=== PATIENT | female | born 1940 | race Caucasian/White ===

== ENCOUNTER 2019-03-13 05:37 | Inpatient (IN) | payer MEDICARE, BC ==
[~2019-03-13] VITALS: Ht 157.5 cm; Wt 57.2 kg
[~2019-03-13 05:37] MED LIST: METO-357 PO; QUET50TA PO; RIVA10TA PO; SENN-168 PO
--- NOTE | 2019-03-13 06:15 | NUR ---
Admitted a 78 y/o female from [facility] and evaluated at [facility]. On 5150 hold as GD. Patient admitting Dx. Psychosis. Medical dx. hypertension. Per hold, patient is throwing dishes and bottles at peoples and onto streets. per daughter's neighbors and patrol, client is severely mentally impaired and reportedly drinking green water from pool. Upon face to face evaluation, patient appeared alert and oriented x 2, anxious, disorganize, easily agitated, irritable, demanding, needy, entitled, argumentative, paranoid, bizarre behavior, ambulatory with walker, dishevelled and hard to redirect. Explanation provided to the patient, limit settings done and redirected the patient. Explained the paper works and patient's refused to sign the consents. Informed of visiting hours and unit policies. Belongings and contraband checked. Q15 min checks initiated. Care plan started. Vital signs checked and recorded. Patient's rights discussed, guide to prescription meds handbook provided. Patient advised of the hold. Notified Dr. Lucas of the admission. left message to SUPA LANDRY (responsible republican). Will monitor patient for mood, safety and behavior. Will endorse to the day shift.
[2019-03-13 06:25] VITALS: BP 135/75
[2019-03-13] MEDS ORDERED: MAG HYDROX/AL HYDROX/SIMETH 30 ML UDC PO PRN (06:30)
[2019-03-13] MEDS ORDERED: ACETAMINOPHEN 325 MG TABLET PO PRN (06:30)
[2019-03-13] MEDS ORDERED: LORAZEPAM 0.5 MG TABLET PO PRN (06:30)
[2019-03-13] MEDS ORDERED: BLOOD SUGAR DIAGNOSTIC 1 EACH STRIP IN ONE (06:30)
[2019-03-13] MEDS ORDERED: ZOLPIDEM TARTRATE 5 MG TABLET PO PRN (06:30)
[2019-03-13] MEDS ORDERED: MAGNESIUM HYDROXIDE 30 ML UDC PO PRN (06:30)
--- NOTE | 2019-03-13 06:56 | NUR ---
RN NOTES: PT. REFUSED FULL BODY SKIN ASSESSMENT AND PICTURES, NOTED WITH MULTIPLE BODY DISCOLORATIONS AND BRUISES, ENCOURAGED X3 EXPLINED RISKS AND BENEFITS STILL REFUSED ,PER PT. I AM GOING HOME RIGHT NOW, I AM OK, ENDORSE TO DAY NURSE TO FOLLOW UP . PT.REFUSED ID PICTURES FOR THE CHART AT THIS TIME PT. REFUSED MRSA NARES SWAB AT THIS TIME, PT. BEHAVIOR VERY UNCOOPERATIVE, PARANOID AT THIS TIME , WILL ENDORSE TO DAY NURSE FOR CONTINUITY CARE AND FOLLOW UP
--- NOTE | 2019-03-13 07:00 | NUR ---
RN NOTES: PT. REFUSED INTIALLY BLOOD SUGAR CHECK , ENCOURAGED , PER PT. I DON'T WANT TO CHECK.
[2019-03-13] MEDS ORDERED: LORA-259 PO (08:23)
[2019-03-13] MEDS ORDERED: METO-357 PO (08:23)
[2019-03-13] MEDS ORDERED: SENNOSIDES 8.6 MG TABLET PO PRN (10:30)
--- NOTE | 2019-03-13 10:35 | NUR ---
HARPAL called the pts daughter, Karime ([phone]), and discussed the pts case as she is a returning patient. HARPAL informed her that the pt has a different psychiatrist with this admission and that once she is medicated again that the pt will hopefully show improvement. HARPAL stated that she will pass on her number to the psychiatrist the following day and we can devise a discharge plan together. Addendum: 03/14/19 at 1419 by SARITHA ROWAN Ifrah
[2019-03-13] MEDS: METOPROLOL SUCCINATE 50 MG TAB.SR.24H PO SCH (11:26)
--- NOTE | 2019-03-13 11:48 | NUR ---
umesh BARRIGA RN aware. Addendum: 03/13/19 at 1149 by BANDAR NDIAYE RT Amended: Links added.
--- NOTE | 2019-03-13 15:46 | NUR ---
Group Note: SW encouraged the pt to participate in group therapy on 03/13/19 at 2pm on support systems and their impact. The pt stated that she hates her family and no one helps her. She stated that she wanted to go home and utilized inappropriate language.
[2019-03-13 16:00] VITALS: BP 151/84
[2019-03-13] MEDS: RIVAROXABAN 10 MG TABLET PO SCH (17:16)
[2019-03-13] MEDS: DIVALPROEX SODIUM 125 MG TABLET.DR PO SCH (21:00)
[2019-03-13] MEDS: QUETIAPINE FUMARATE 25 MG TABLET PO SCH (21:39)
--- NOTE | 2019-03-13 21:39 | NUR ---
GPS-RN PATIENT REFUSED HER SCHEDULED MEDICATIONS FOR TONIGHT. DESPITE OF EDUCATION PROVIDED. PATIENT STATED "NO, I DON'T WANT IT, GET OUT OF HERE". PATIENT STRONGLY REFUSED.
--- NOTE | 2019-03-13 23:08 | NUR ---
GPS-RN REPORT GIVEN TO ISRRAEL MERINO, FOR CONTINUITY OF CARE.
--- NOTE | 2019-03-13 23:10 | NUR ---
RN NOTES Report received from WILBER Porter. Patient received sitting up on bed, alert, oriented x 2-3. Breathing even and unlabored. Not in any distress. Patient is non- compliant with cares and meds. Will continue to monitor
[2019-03-14 08:00] VITALS: BP 134/62
[2019-03-14] MEDS ORDERED: ESCITALOPRAM OXALATE (10 MG) 10 MG TABLET PO SCH (09:00)
[2019-03-14] MEDS: DIVALPROEX SODIUM 125 MG TABLET.DR PO SCH ×3 (09:00→21:00)
[2019-03-14] MEDS: METOPROLOL SUCCINATE 50 MG TAB.SR.24H PO SCH (09:09)
--- NOTE | 2019-03-14 09:30 | NUR ---
REFUSED AM DEPAKOTE AND LABS.YELLING OUT AT STAFF WITH PROFANITY.
--- NOTE | 2019-03-14 11:30 | NUR ---
SPOKE WITH DR. FERRELL REGARDING DEPAKOTE REFUSAL.
--- NOTE | 2019-03-14 13:00 | NUR ---
DR. MORRIS CALLED REGARDING 3+ EDEMA IN LT. LEG AND 2+ EDEMA IN RT. LEG.ADDITIONALLY DR. MORRIS AWARE OF DVT HX.NO ORDERS GIVEN.DR. TAMAYO IN TO SEE PT. ON CONSULT.
--- NOTE | 2019-03-14 14:00 | NUR ---
DR. FERRELL SPOKE WITH PT. AT LENGTH REGARDING NEED TO TAKE MEDS-PT. STATES TO HIM SHE IS AGREEABLE TO TAKE HER MEDS.
--- NOTE | 2019-03-14 14:10 | NUR ---
HARPAL and the pts MD, Dr. Lucas, met with the pt in her room to discuss her medication noncompliance. It was explained to the pt that she is on a hold and cannot be discharged home until she is stable which requires her to take her medications. Pt stated that she does not have bipolar and does not need the medications but towards the end of the meeting the pt stated that she will take the medications.
--- NOTE | 2019-03-14 14:15 | NUR ---
Pts daughter, Ifrah ([phone]), called the SW once she spoke to the MD and stated that she wanted to send over information regarding the pt and the instances surrounding a need for hospitalization so that the SW can present that information during the PC hearing.
--- NOTE | 2019-03-14 14:18 | NUR ---
HRAPAL called the pts daughter, Ifrah ([phone]), and informed her that the SW left her number with the psychiatrist to receive a phone call regarding the pt. HARPAL also informed her that the pt has not been taking her medications at this time.
--- NOTE | 2019-03-14 14:18 | NUR ---
Initial Discharge Plan: Pt currently lives alone in her house located at [address] [place] [address]; ([phone]). Per pt, she would like to return to her home as soon as possible. SW will work with the pt and the MD regarding appropriate discharge planning. SW will form a safe and proper discharge.
[2019-03-14] MEDS ORDERED: DIVALPROEX SODIUM 125 MG TABLET.DR PO ONE (15:00)
--- NOTE | 2019-03-14 15:00 | NUR ---
AM DEPAKOTE GIVEN ALONG WITH NEW SEROQUEL.
[2019-03-14] MEDS: QUETIAPINE FUMARATE 25 MG TABLET PO SCH ×2 (15:01→21:02)
[2019-03-14 16:00] VITALS: BP 151/71
--- NOTE | 2019-03-14 16:08 | NUR ---
Group Note: SW went to patient's room to invite patient to attend today's support group at 2:45pm in the activities room, regarding positive coping mechanisms. Patient refused. SW encouraged patient to attend later but respected patient's self-determination.
[2019-03-14] MEDS: RIVAROXABAN 10 MG TABLET PO SCH (17:15)
[2019-03-14 20:33] VITALS: BP 123/63
--- NOTE | 2019-03-14 21:02 | NUR ---
GPS-RN PATIENT REFUSED HER SCHEDULED MEDICATIONS FOR TONIGHT. PT. YELLS OUT AND AGITATED STATED "NO, I DON'T WANT TO TAKE IT". DESPITE OF EDUCATION PROVIDED, PATIENT STILL REFUSED. WILL CONTINUE TO MONITOR.
[2019-03-15 08:00] VITALS: BP 119/59
--- NOTE | 2019-03-15 08:55 | NUR ---
Per [facility] regulations, the has been in contact with the pts daughter, Ifrah ([phone]), and has been releasing information on the pt because the pt is on a hold for grave disability.
[2019-03-15] MEDS: DIVALPROEX SODIUM 125 MG TABLET.DR PO SCH ×2 (09:00→21:00)
[2019-03-15] MEDS: QUETIAPINE FUMARATE 25 MG TABLET PO SCH ×2 (09:00→21:46)
--- NOTE | 2019-03-15 09:07 | NUR ---
Pts daughter, Ifrah ([phone]), called the SW and confirmed that the SW received the email that was sent. Pts daughter also asked for an update regarding the pts behaviors and the SW informed her that the pt has been visible on the unit and appeared to be agitated.
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
[2019-03-15] MEDS: METOPROLOL SUCCINATE 50 MG TAB.SR.24H PO SCH (09:46)
--- NOTE | 2019-03-15 12:41 | NUR ---
Pt. was screaming, yelling, verbally abusive and highly agitated to the psychiatrist and psychiatrist ordered Zyprexa 10 mg IM>
--- NOTE | 2019-03-15 12:50 | NUR ---
rn note zyprexa 10 mg IM shot voluntarily given right deltoid, pt agreed to take the shot stating, "give me the shot" when informing her about the medication.
[2019-03-15] MEDS ORDERED: OLANZAPINE 10 MG VIAL IM ONE (13:00)
--- NOTE | 2019-03-15 13:29 | NUR ---
rn note pt went to bed and sleepy, still talks to herself, at this time.
[2019-03-15 16:00] VITALS: BP 129/76
--- NOTE | 2019-03-15 17:11 | NUR ---
Pt. is fully aware and said she is not drowsy or sleepy. Pt. is using wheelchair and advised to call to staffs if needs assistance. Notified Dr. Lucas and ordered to d/c 1:1
[2019-03-15] MEDS: RIVAROXABAN 10 MG TABLET PO SCH (17:49)
[2019-03-15 20:25] VITALS: BP 111/45
--- NOTE | 2019-03-15 21:48 | NUR ---
GPS RN notes Pt refused PM medications: Depakote 125 mg/1 tab/PO and Seroquel 25 mg/1 tab/PO. Explained the benefits of taking meds. Pt states "Put in your ass and get out of my room." Will continue to monitor.
--- NOTE | 2019-03-16 00:30 | NUR ---
GPS RN notes Pt had a small nose bleed. Pt refused to have assessment. Pt states " Close the door. I don't want you here." Will continue to monitor Q 15 mins check.
--- NOTE | 2019-03-16 00:45 | NUR ---
GPS RN notes Pt refused to have q 15 min check. Pt states "Get the fuck out of here. You are a bitch." Informed Pt that it is a hospital protocol to have Q 15 mins check for Pt safety. Informed and notify Charge Nurse WILBER Brink. Will continue to monitor.
--- NOTE | 2019-03-16 00:50 | NUR ---
GPS RN NOTE: PATIENT CURSED AT STAFF, THREW THE TISSUES ON THE STAFF AND VERBALLY ABUSIVE. SPOKED TO THE PATIENT, REDIRECT THE PATIENT, LIMIT SETTINGS DONE, REALITY ORIENTATION AND EXPLANATIONS OF THE POLICIES AND PROCEDURE PROVIDED. PATIENT CALM DOWN AND STAYS IN BED. WILL CONTINUE TO MONITOR Q15 MINS FOR SAFETY
--- NOTE | 2019-03-16 05:00 | NUR ---
GPS RN notes Found Pt picking her nose. Informed Pt not to picking her nose because she had a small nose bleed earlier. Pt states " Shut up and get out of my room." Charge nurse WILBER Brink informed and notify. Will continue to monitor Q 15 mins check.
[2019-03-16 08:00] VITALS: BP 126/68
[2019-03-16] MEDS: METOPROLOL SUCCINATE 50 MG TAB.SR.24H PO SCH (08:30)
[2019-03-16] MEDS: DIVALPROEX SODIUM 125 MG TABLET.DR PO SCH ×2 (08:34→21:00)
[2019-03-16] MEDS: QUETIAPINE FUMARATE 25 MG TABLET PO SCH (08:34)
--- NOTE | 2019-03-16 08:34 | NUR ---
gps staff cytotechnologist: notes pt refused depakote and seroquel this morning, stated, "i am not on it, i don't like medicine."
[2019-03-16] MEDS: OLANZAPINE 5 MG/TAB.RAPDIS PO SCH ×2 (09:43→21:00)
--- NOTE | 2019-03-16 15:30 | NUR ---
GROUP NOTE: SW encourage pt to participate in group therapy on this present day discussing the topic of "support systems." Pt unable to participate due to yelling, screaming, and refusing medications.
[2019-03-16 16:00] VITALS: BP 160/83
--- NOTE | 2019-03-16 16:06 | NUR ---
PC Hearing: SW called pt's daughter, Maral ([phone]), and left a voicemail that informed her that the pt is going to have a hearing on Tuesday.
[2019-03-16] MEDS: RIVAROXABAN 10 MG TABLET PO SCH (17:11)
[2019-03-16 20:00] VITALS: BP 117/73
--- NOTE | 2019-03-16 22:00 | NUR ---
RN NOTES PATIENT REFUSED DEPAKOTE AND ZYPREXA. I INFORMED PATIENT ABOUT THE RISKS AND BENEFITS OF TAKING/NOT TAKING DEPAKOTE AND ZYPREXA. PATIENT INSISTS ON REFUSING THE MEDICATIONS. WILL CONTINUE TO MONITOR.
--- NOTE | 2019-03-17 03:45 | NUR ---
GPS RN NOTES PATIENT CURSING AT STAFF, VERBALLY ABUSIVE. PATIENT REFUSED MONITOR Q15 CHECKS. PATIENT WALKING AROUND WITH WALKER. CHARGE NURSE, GLEN, INFORMED AND NOTIFIED. WILL CONTINUE TO MONITOR.
--- NOTE | 2019-03-17 04:05 | NUR ---
RN NOTES PATIENT WALKING AROUND UNIT YELLING OUT PROFANITY TO ME AND WILBER DAVIS. SHE FOLLOWS IT UP BY STATING, "YOU BOTH CAN GO TO HELL."
--- NOTE | 2019-03-17 04:29 | NUR ---
GPS RN NOTES PATIENT HAD A SMALL NOSE BLEED. ASKED PATIENT IF I CAN ASSESS HER NOSE. PATIENT REFUSED, STATING, "NO THANK YOU, I CAN DO IT MY SELF. GOODBYE. GO AWAY." CHARGE NURSE, GLEN, KB. WILL CONTINUE TO MONITOR PATIENT Q15 MINS CHECK.
[2019-03-17 07:09] VITALS: BP 117/73
[2019-03-17 08:00] VITALS: BP 134/73
--- NOTE | 2019-03-17 08:00 | NUR ---
COOPERATIVE,ENGAGING IN CONVERSATION WITH OTHER PT'S.
[2019-03-17] MEDS: OLANZAPINE 5 MG/TAB.RAPDIS PO SCH ×2 (09:05→21:25)
[2019-03-17] MEDS: DIVALPROEX SODIUM 125 MG TABLET.DR PO SCH ×2 (09:05→21:25)
[2019-03-17] MEDS: METOPROLOL SUCCINATE 50 MG TAB.SR.24H PO SCH (09:05)
--- NOTE | 2019-03-17 14:30 | NUR ---
VERBALIZED BEING UPSET ABOUT NOT HAVING A PRIVATE RM.
[2019-03-17 16:00] VITALS: BP 130/69
[2019-03-17] MEDS: RIVAROXABAN 10 MG TABLET PO SCH (16:52)
--- NOTE | 2019-03-17 20:00 | NUR ---
GPS RN NOTES PT REFUSED TO HAVE VS TAKEN. EXPLAINED TO PT IMPORTANCE OF VS IN HER POC BUT PT STILL REFUSED. WILL CONTINUE TO MONITOR.
[2019-03-18 08:00] VITALS: BP 116/53
[2019-03-18] MEDS: METOPROLOL SUCCINATE 50 MG TAB.SR.24H PO SCH (09:00)
[2019-03-18] MEDS: OLANZAPINE 5 MG/TAB.RAPDIS PO SCH ×2 (09:00→21:00)
[2019-03-18] MEDS: DIVALPROEX SODIUM 125 MG TABLET.DR PO SCH ×2 (09:00→21:00)
--- NOTE | 2019-03-18 09:00 | NUR ---
RN NOTES PATIENT REFUSED ALL HER AM MEDS. YELLS AND CUSSES AT EVERYONE. PROVOKES EVERYONE.
[2019-03-18 16:00] VITALS: BP 142/74
[2019-03-18] MEDS: RIVAROXABAN 10 MG TABLET PO SCH (17:09)
--- NOTE | 2019-03-18 21:00 | NUR ---
Patient is confused but alert and oriented x2, person and place. Steady gait. However, patient is seen in the unit on a wheelchair. Refused all medications. Very loud at time, sarcastic and manipulative. Denies SI/AVH. Will continue to monitor.
[2019-03-18 21:35] VITALS: BP 118/50
--- NOTE | 2019-03-19 05:05 | NUR ---
Patient refused body assessment of pictures.
[2019-03-19 08:00] VITALS: BP 130/70
[2019-03-19] MEDS: METOPROLOL SUCCINATE 50 MG TAB.SR.24H PO SCH (08:46)
[2019-03-19] MEDS: DIVALPROEX SODIUM 125 MG TABLET.DR PO SCH ×2 (08:47→21:00)
[2019-03-19] MEDS: OLANZAPINE 5 MG/TAB.RAPDIS PO SCH ×2 (08:47→21:00)
--- NOTE | 2019-03-19 09:00 | NUR ---
GPS/RN AM SHIFT INITIAL NOTES RECEIVED PT IN THE UNIT HALLWAY AWAKE, PT IS ALERT, ABLE TO VERBALIZED HER NEEDS. DENIES SI AND HI, NO ACUTE DISTRESS NOTED. VERBALIZED THAT SHE WILL ONLY TAKE HER METOPROLOL MEDICATION AFTER BREAKFAST AND REFUSED THE THE REST OF SCHEDULED AM MEDS. PT IS STABLE. MONITORING.
--- NOTE | 2019-03-19 12:44 | NUR ---
HARPAL met with the pts daughter, Maral ([phone]) and her , Steven, because they wanted to attend the pts PC Hearing. HARPAL informed the [place] Door Assembler, Aki Corcoran, who stated that he will allow the family to present their evidence before the hearing because the pt did not release permission for the family to be involved. This way the family can have a part but will not be able to hear any of the information presented by the hospital or the pts advocate.
--- NOTE | 2019-03-19 12:47 | NUR ---
HARPAL called the pt's daughter, Maral ([phone]), and informed her that the pts hold was upheld and that the pt is not currently filing for a writ. Pt will now be discharged when the pts MD, Dr. Lucas, decides to release her.
--- NOTE | 2019-03-19 15:30 | NUR ---
GROUP NOTE: SW encourage pt to participate in group therapy on this present day discussing the topic of "reality-testing." Pt unable to participate due to being verbally abusive and refusing medications.
[2019-03-19 16:00] VITALS: BP 124/69
--- NOTE | 2019-03-19 16:25 | NUR ---
GPS/TELEPHONE SALES AGENT DRAW - REFUSED LABORATORY TECHNICIANS ATTEMPTED 3 TIMES FOR PT TO AGREE FOR A LAB DRAW, STILL REFUSED. Addendum: 03/19/19 at 1804 by SLOANE TANG RN ADDENDUM: DR. MORRIS MADE AWARE OF PT'S REFUSAL FOR LAB DRAW.
[2019-03-19] MEDS: RIVAROXABAN 10 MG TABLET PO SCH (16:27)
--- NOTE | 2019-03-19 19:16 | NUR ---
GPS/RN AM SHIFT END NOTES ALL NEEDS MET. NO ACUTE CHANGE OF CONDITION NOTED DURING THE SHIFT, PT ENDORSED TO PM NURSE IN STABLE CONDITION TO CONTINUE CARE.
[2019-03-19 20:00] VITALS: BP 189/87
[2019-03-19 20:31] VITALS: BP 159/84
[2019-03-19 21:00] VITALS: BP 158/85
[2019-03-20 08:00] VITALS: BP 124/68
[2019-03-20] MEDS ORDERED: OLANZAPINE 10 MG VIAL IM ONE (09:30)
[2019-03-20] MEDS: METOPROLOL SUCCINATE 50 MG TAB.SR.24H PO SCH (11:00)
[2019-03-20] MEDS: DIVALPROEX SODIUM 125 MG TABLET.DR PO SCH ×2 (11:00→21:00)
[2019-03-20] MEDS: OLANZAPINE 5 MG/TAB.RAPDIS PO SCH ×2 (11:01→21:00)
--- NOTE | 2019-03-20 15:19 | NUR ---
Group Note: SW encouraged the pt to participate in group therapy on 03/20/19 at 2pm discussing the topic of discharge planning. Pt was unable to participate due to being verbally abusive and refusing medications. Pt screamed at the SW, "Get out of here! I already fucking told you that I am going to go home!" Pt did not appear to be appropriate for group therapy.
[2019-03-20 16:00] VITALS: BP 134/65
[2019-03-20] MEDS: RIVAROXABAN 10 MG TABLET PO SCH (18:02)
[2019-03-20 20:10] VITALS: BP 134/72
[2019-03-20] MEDS: ATORVASTATIN 10 MG TABLET PO SCH (22:00)
--- NOTE | 2019-03-20 22:46 | NUR ---
GPS RN NOTE: PATIENT REFUSED PM MEDS, EXPLAINED THE RISK AND BENEFITS, PATIENT STILL REFUSED. WILL CONTINUE TO MONITOR Q15 MINS FOR SAFETY
--- NOTE | 2019-03-21 07:10 | NUR ---
RN INITIAL NOTE PATIENT IN HER ROOM. VERY TALKATIVE AND MAKING JOKES. PER REPORT, PATIENT TENDS TO CHANGE MOODS ALL THE TIME. WILL CONTINUE TO MONITOR
[2019-03-21 08:00] VITALS: BP 116/59
[2019-03-21] MEDS: METOPROLOL SUCCINATE 50 MG TAB.SR.24H PO SCH (08:55)
[2019-03-21] MEDS: OLANZAPINE 5 MG/TAB.RAPDIS PO SCH ×2 (08:55→21:00)
[2019-03-21] MEDS: DIVALPROEX SODIUM 125 MG TABLET.DR PO SCH ×2 (08:55→21:00)
--- NOTE | 2019-03-21 15:51 | NUR ---
RN NOTE PATIENT HAD 1 EPISODE OF EPISTAXIS. VSS. CRYSTAL DURHAM AWARE. WILL HOLD DOSE OF XARELTO AT 1700 AND TO CONTINUE MONITORING FOR TONIGHT
[2019-03-21] MEDS: RIVAROXABAN 10 MG TABLET PO SCH (16:07)
--- NOTE | 2019-03-21 16:09 | NUR ---
RN NOTE PATIENT REFUSES TO GET HER VITALS DONE FOR THIS AFTERNOON. LAST BP WAS 121/59, POST NOSE BLEED
--- NOTE | 2019-03-21 16:21 | NUR ---
SW called the pt's daughter, Maral ([phone]), as a response to her voicemail and discussed the option of SNF placement but need to hear the MDs opinion.
[2019-03-21 20:31] VITALS: BP 162/75
[2019-03-21] MEDS: ATORVASTATIN 10 MG TABLET PO SCH (22:00)
--- NOTE | 2019-03-21 23:21 | NUR ---
GPS RN NOTE: PATIENT REFUSED DEPAKOTE, ZYPREXA AND LIPITOR. EXPLAINED THE RISK AND BENEFIT X 3 ATTEMPTS. PATIENT GETS UPSET, LOUD, HYPERVERBAL, CURSING AT STAFF, AGITATED, VERBALLY ABUSIVE AND PATIENT STILL REFUSED. PATIENT TALKING TO SELF AND CANNOT CONTROL HER BEHAVIOR. PATIENT WANTED TO BE DISCHARGED. SET LIMITS TO THE PATIENT. CHARGE NURSE SPOKE TO THE PATIENT AND PROVIDED EXPLANATION AND REDIRECTIONS. TIME GIVEN TO THE PATIENT. PATIENT KEPT QUIET INSIDE HER ROOM AND DOES NOT WANT TO BE BOTHERED. WILL CONTINUE TO MONITOR Q15 MINS FOR SAFETY
[2019-03-22 07:24] LABS: BASOPHILS % (AUTO) 0.3 % (0.0-2.0); EOSINOPHILS % (AUTO) 1.5 % (0.0-6.0); HEMATOCRIT 36 % (33-45); HEMOGLOBIN 12.2 g/dL (11.5-14.8); LYMPHOCYTES # (AUTO) 1.4 /CMM (0.8-4.8); LYMPHOCYTES % (AUTO) 18.7 % (20.0-44.0); MEAN CORPUSCULAR HGB CONC 34 g/dl (31.0-36.0); MEAN CORPUSCULAR VOLUME 87 fL (82-100); MONOCYTES # (AUTO) 0.5 /CMM (0.1-1.30); NEUTROPHILS # (AUTO) 5.4 /CMM (1.8-8.9); NEUTROPHILS % (AUTO) 72.5 % (43.0-81.0); PLATELET COUNT (AUTO) 287 /CMM (150-450); RED BLOOD CELL COUNT(AUTO) 4.16 MIL/uL (4.0-5.2); WHITE BLOOD COUNT (AUTO) 7.5 K/uL (4.3-11.0)
[2019-03-22 08:00] VITALS: BP 121/51
[2019-03-22] MEDS: OLANZAPINE 5 MG/TAB.RAPDIS PO SCH ×2 (08:52→21:00)
[2019-03-22] MEDS: DIVALPROEX SODIUM 125 MG TABLET.DR PO SCH ×2 (08:52→21:00)
[2019-03-22] MEDS: METOPROLOL SUCCINATE 50 MG TAB.SR.24H PO SCH (08:52)
--- NOTE | 2019-03-22 15:35 | NUR ---
Group Note: SW encouraged pt to attend group therapy on 03/22/19 at 2:30pm discussing anger management for when they are in the hospital and for once they are discharged but pt unable to attend.
--- NOTE | 2019-03-22 16:00 | NUR ---
refused vital signs. explained risk and bebnefits but still refused.
[2019-03-22] MEDS: RIVAROXABAN 10 MG TABLET PO SCH (17:50)
--- NOTE | 2019-03-22 22:00 | NUR ---
GPS RN NOTES TOOK ONLY HER CHOLESTEROL PILL.REFUSED DEPAKOTE AND ZYPREXA.EXPLAINED RISK AND BENEFITS FOR TAKING AND NOT TAKING ORDERED MEDICINES,STILL REFUSED.
[2019-03-22] MEDS: ATORVASTATIN 10 MG TABLET PO SCH (22:05)
--- NOTE | 2019-03-22 23:06 | NUR ---
GPS RN NOTES REFUSED BED ALARMS
--- NOTE | 2019-03-23 05:15 | NUR ---
GPS RN NOTES REFUSED TO HAVE BLOOD DRAW THIS TIME.CLAIMED SHE GOT ONE YESTERDAY.
--- NOTE | 2019-03-23 07:18 | NUR ---
OPENING PATIENT IN HER ROOM IN BED VERY TALKATIVE . PATIENT CURRENTLY CALM WILL CONTINUE TO MONITOR
[2019-03-23 08:00] VITALS: BP 118/64
[2019-03-23] MEDS: OLANZAPINE 5 MG/TAB.RAPDIS PO SCH ×2 (09:24→21:00)
[2019-03-23] MEDS: METOPROLOL SUCCINATE 50 MG TAB.SR.24H PO SCH (09:24)
[2019-03-23] MEDS: DIVALPROEX SODIUM 125 MG TABLET.DR PO SCH ×2 (09:24→21:00)
--- NOTE | 2019-03-23 13:24 | NUR ---
SW called the pt's daughter, Maral ([phone]), and informed her that the pts MD and SW speak every day regarding the situation of the pt. She was informed that the pt is not stable at this time to even consider placement due to the fact that she takes her medications sporadically. HARPAL stated that once the pt has shown improvement, she will be in contact to discuss the appropriate options.
[2019-03-23 16:00] VITALS: BP 114/65
[2019-03-23] MEDS: RIVAROXABAN 10 MG TABLET PO SCH (17:08)
--- NOTE | 2019-03-23 17:53 | NUR ---
CLOSING PT COOPERATIVE ALL DAY MOSTLY IN ROOM BED IN LOW POSITION KEPT SAFE ALL SHIFT PT COMPLIANT WITH MEDICATION PLAN. WILL GIVEN REPORT TO PM SHIFT FOR CONTINUITY OF CARE
[2019-03-23 18:04] VITALS: BP 118/64
--- NOTE | 2019-03-23 19:56 | NUR ---
PT IS IN HER ROOM WHEN RECEIVED, LYING IN BED, AFTER WE NURSES CAME OUT OF PTS ROOM PT CAME OUT TOO AND START YELLING AND CUSSING.
[2019-03-23 21:16] VITALS: BP 147/69
[2019-03-23] MEDS: ATORVASTATIN 10 MG TABLET PO SCH (21:32)
--- NOTE | 2019-03-23 22:00 | NUR ---
PT REFUSED ALL HS MEDS, OFFERED IT TO PT 3X, BUT ONLY MAKING PT AGITATED, CHARGE NURSE INFORMED.
[2019-03-24 08:00] VITALS: BP 116/66
[2019-03-24] MEDS: OLANZAPINE 5 MG/TAB.RAPDIS PO SCH ×2 (09:00→21:00)
[2019-03-24] MEDS: METOPROLOL SUCCINATE 50 MG TAB.SR.24H PO SCH (09:00)
[2019-03-24] MEDS: DIVALPROEX SODIUM 125 MG TABLET.DR PO SCH ×2 (09:00→21:00)
--- NOTE | 2019-03-24 09:20 | NUR ---
GPS RN NOTES PATIENT REFUSED TO TAKE AM MEDICATIONS. RISKS AND BENEFITS EXPLAINED BUT TO NO AVAIL. PATIENT STRONGLY REFUSED, WITH INCREASING AGITATION MEDICATIONS ARE BEING OFFERED TO HER. CHARGE NURSE AWARE. WILL CONTINUE TO MONITOR
[2019-03-24 16:00] VITALS: BP 125/70
[2019-03-24] MEDS: RIVAROXABAN 10 MG TABLET PO SCH (16:08)
[2019-03-24 20:49] VITALS: BP 160/77
[2019-03-24] MEDS: ATORVASTATIN 10 MG TABLET PO SCH (21:30)
--- NOTE | 2019-03-25 03:47 | NUR ---
RN NOTES: PT. REFUSED ALL NIGHT MEDS ,ENCOURAGER ,EXPLINED RISKS AND BENEFITS , STILL REFUSE .PER PT. I AM NOT TAKING ANY MEDS.
--- NOTE | 2019-03-25 07:50 | NUR ---
GPS RN NOTE PATIENT IN HER ROOM ,VERY TALKATIVE . WALKING AROUND HER ROOM , RESPIRATION EVEN UNLABORED , BED IN LOWEST AND LOCKED POSITION , PLAN OF CARE DISCUSSED WITH PATIENT , WILL CONT TO MONITOR Q15 MIN FOR SAFETY AND BEHAVIOR
[2019-03-25] MEDS: METOPROLOL SUCCINATE 50 MG TAB.SR.24H PO SCH (09:12)
[2019-03-25] MEDS: DIVALPROEX SODIUM 125 MG TABLET.DR PO SCH ×2 (09:12→21:00)
[2019-03-25] MEDS: OLANZAPINE 5 MG/TAB.RAPDIS PO SCH ×2 (09:12→21:00)
--- NOTE | 2019-03-25 10:38 | NUR ---
GPS RN NOTE PATIENT IN ACTIVITY ROOM , NOT IN DISTRESS
--- NOTE | 2019-03-25 14:06 | NUR ---
GPS RN NOTE WALKING TO HALLWAY AND OCCASIONALLY GET AGITATED , ALL NEEDS ATTENDED, WILL MONITOR
[2019-03-25 16:00] VITALS: BP 128/78
[2019-03-25] MEDS: RIVAROXABAN 10 MG TABLET PO SCH (16:26)
--- NOTE | 2019-03-25 17:03 | NUR ---
GPS RN NOTE NOTED BOTH LEGS WITH REDNESS ANS SWOLLEN RT LEG MORE PINKISH IN COLOR , CALLED TO DR ARNOLD WITH ORDER US BOTH LEGS AND OK TO HAVE FOOT DOCTOR TO TRIM TOENAIL
--- NOTE | 2019-03-25 18:08 | NUR ---
GPS RN NOTE PATIENT IN ROOM HAVING DINNER ,ABLE TO EAT SELF, NOT IN ACUTE DISTRESS , WILL CONT TO MONITOR CLOSELY
--- NOTE | 2019-03-25 20:30 | NUR ---
RN NOTES: PT. RFUSED WEEKLY SKIN REASSESSMENT AND PHOTOGRAPH ,ENCOURAGED ,EXPLAINED RISKS AND BENEFITS STILL REFUSED, PT. STRONGLY REFUSED AND PT. BEHAVIOR VERY AGGRESSIVE, PARANOID, UNCOOPERATIVE,PARANOID.
[2019-03-25 20:32] VITALS: BP 125/52
[2019-03-25] MEDS: ATORVASTATIN 10 MG TABLET PO SCH (21:59)
--- NOTE | 2019-03-25 22:00 | NUR ---
RN NOTES: PT. REFUSED ALL NIGHT MEDS ,ENCOURAGER ,EXPLINED RISKS AND BENEFITS , STILL REFUSE .PER PT. I AM NOT TAKING ANY MEDS. THIS MEDICATIONS NOT FOR ME, PT. BEHAVIOR VERY UNCOOPERTIVE , AGGRESSIVE , PARANOID , HYPERVERBAL TO STAFF .
--- NOTE | 2019-03-26 04:30 | NUR ---
RN NOTES: PT. PACING IN HALLWAY , AND PT. BEHAVIOR VERY AGGRESIVE ,PARANOID, HYPERVERBAL, VERBALLY ABUSIVE TO STAFF, ARGUING WITH STAFF WITHOUT REASONS, OFFER ATIVAN PT. REFUSED TO TAKE ATIVAN, REDIRECT THE PATIENT BUT VERY HARD TO REDIRECT THE PATIENT ,NOT FOLLOWING ANY REDICTIONS , PT. USING ALOT OF F WORDS, WILL CONTINUITY OF THE CARE.
[2019-03-26 08:00] VITALS: BP 123/66
[2019-03-26] MEDS: OLANZAPINE 5 MG/TAB.RAPDIS PO SCH ×2 (09:32→21:00)
[2019-03-26] MEDS: METOPROLOL SUCCINATE 50 MG TAB.SR.24H PO SCH (09:32)
--- NOTE | 2019-03-26 10:14 | NUR ---
HARPAL and the pts MD, Dr. Lucas, spoke to the pt together regarding her discharge plan. Pt stated that she was upset with her stay at the hospital because she felt that everyone lies to her. She stated that she wanted to leave AMA but the MD explained that was not an option because she is on a hold. informed her that he would not consider discharging her until she takes her medications both in the morning and at night instead of just once a day. She stated that she has been taking it twice but the records do not show that. also stated that she cannot return to her home if it is not a safe placement for her and asked the SW to have a wellness check done on the house.
--- NOTE | 2019-03-26 14:57 | NUR ---
Group Note: SW encouraged pt to attend group therapy on 03/26/19 at 1:30pm discussing support systems for when they are in the hospital and for once they are discharged but the pt declined to attend.
[2019-03-26 16:00] VITALS: BP 100/63
[2019-03-26] MEDS: RIVAROXABAN 10 MG TABLET PO SCH (17:26)
[2019-03-26 19:48] VITALS: BP 136/63
[2019-03-26] MEDS: DIVALPROEX SODIUM 250 MG TABLET.DR PO SCH (21:00)
[2019-03-26] MEDS: ATORVASTATIN 10 MG TABLET PO SCH (21:13)
--- NOTE | 2019-03-26 22:10 | NUR ---
RN NOTES: PT. REFUSED ALL NIGHT MEDS ,ENCOURAGER ,EXPLINED RISKS AND BENEFITS , STILL REFUSE .PER PT. AT NIGHT TIMES I DON'T TAKING ANY MEDICATIONS, PT. BEHAVIOR VERY UNCOOPERTIVE , AGGRESSIVE , PARANOID , HYPERVERBAL TO STAFF .
[2019-03-27 08:00] VITALS: BP 112/52
[2019-03-27] MEDS: METOPROLOL SUCCINATE 50 MG TAB.SR.24H PO SCH (08:34)
[2019-03-27] MEDS: DIVALPROEX SODIUM 250 MG TABLET.DR PO SCH ×2 (08:35→16:38)
[2019-03-27] MEDS: OLANZAPINE 5 MG/TAB.RAPDIS PO SCH ×2 (08:35→16:38)
--- NOTE | 2019-03-27 15:30 | NUR ---
NURSING NOTE: PT VERY LABILE, VERY EASILY AGITATED, STARTED YELLING, SCREAMING, BANGING HER WALKER ON THE FLOOR, TRIED TO PULL THE CURTAINS FROM THE WALL IN HER ROOM, THROWING HER TRASH OUT IN THE HALLWAY, THEN WENT BACK TO HER ROOM TO CALM DOWN. OFFERED PRN MEDS BUT PT REFUSED. WILL CONTINUE TO MONITOR FOR SAFETY AND BEHAVIOR.
[2019-03-27 15:53] VITALS: BP 127/71
[2019-03-27] MEDS: RIVAROXABAN 10 MG TABLET PO SCH (16:39)
[2019-03-27 20:28] VITALS: BP 110/58
[2019-03-27] MEDS: ATORVASTATIN 10 MG TABLET PO SCH (22:00)
--- NOTE | 2019-03-27 22:43 | NUR ---
gps rn note: Patient refused lipitor, explained the risk and benefits x 3 attempts but patient stated get out of here. Will continue to monitor q15 mins for safety
--- NOTE | 2019-03-28 06:51 | NUR ---
GPS RN NOTE: PATIENT AWAKE, VERBALLY AGGRESSIVE, SCREAMING, LOUD, IRRITABLE, EASILY AGITATED, REDIRECTED THE PATIENT, EXPLANATION PROVIDED, WILL CONTIN TO MONITOR
[2019-03-28 08:00] VITALS: BP 152/97
[2019-03-28] MEDS: DIVALPROEX SODIUM 250 MG TABLET.DR PO SCH ×2 (09:22→18:04)
[2019-03-28] MEDS: OLANZAPINE 5 MG/TAB.RAPDIS PO SCH ×2 (09:22→18:06)
[2019-03-28] MEDS: METOPROLOL SUCCINATE 50 MG TAB.SR.24H PO SCH (09:23)
--- NOTE | 2019-03-28 10:55 | NUR ---
HARPAL called Cathleen Ventura ([phone]), Mallika ROWAN, who attempted to make two house visits with the pt. HARPAL was unable to make contact and left a voicemail that stated that the SW would like to discuss the pts home environment and if it is deemed to be liveable.
--- NOTE | 2019-03-28 11:09 | NUR ---
SW received a call from Waldemar ([phone]) from the [facility] who stated that the pt is now being connected to the AOT program and the individual on her case will be Slava Nava ([phone]). He stated that he does not know the current situation of the pts house and how she would be able to take care of herself.
--- NOTE | 2019-03-28 11:13 | NUR ---
HARPAL called Slava Nava ([phone]), AOT linen supervisor, and stated that she wanted to discuss the pts case with him. She informed him that the pt is going to be discharged from the hospital the following day and he stated that he would like to come out and assess the pt. He stated that he is not aware of the condition of the pts home at this time because he does not have access. HARPAL asked if he knew about any other way that someone can access the house and he stated he was not sure.
--- NOTE | 2019-03-28 11:17 | NUR ---
HARPAL called the pts daughter, Maral ([phone]), and informed her that we need an assessment done on the pts current living situation and she stated that she will go out with the police department because she has access. HARPAL stated that the pt is going to be discharged the following day and the assessment will determine if home is safe for the pt. She stated that she was there recently and that she does not believe it is because the toilets are full of feces and are overflowing and the pool is dirty and there is no running water in the house because the pt has not paid her bills. HARPAL stated that AOT is being involved with the pt and they are considering conservatorship for the pt but the pts daughter kept expressing her concern with a discharge back to the pts home.
--- NOTE | 2019-03-28 13:46 | NUR ---
Intervention with MD: HARPAL and the pts , Dr. Lucas, met with the pt and stated that her home is not habitable and that the water situation needs to be figured out before she can be discharged home. The pt stated that she has a friend, Courtney ([phone]), who is assisting her with this issue. Dr. Lucas presented the pt with two options that consisted of her remaining in the hospital while the water situation is handled or being transferred to a facility short term before returning to her home. Pt stated that she will stay in the hospital for a little bit longer and then she will return to her home.
--- NOTE | 2019-03-28 14:09 | NUR ---
Phone call with family and MD: Pts MD, Dr. Lucas, called the pts daughter, Maral ([phone]), and stated that the pt has until the beginning of the week to be discharged back to her home if it is safe and it is not then a facility needs to be considered because the MD does not think that the pt should be conserved at this time.
--- NOTE | 2019-03-28 15:05 | NUR ---
SW called pts friend, Courtneyavelino Samuels ([phone]), and left a voicemail stating that the SW would like to speak about the pts home environment and if there is any assistance or if it would be possible for the pt to be transferred to a facility. SW asked for him to provide her with a call back whenever it is convenient.
--- NOTE | 2019-03-28 15:54 | NUR ---
Patient is bizarre at times. Aimlessly shouting and acting childish. Difficult to redirect. Patient threw water on the floor and when staff arrive to clean the spots, patient shouted "leave it for me it's my job to clean it."Selective with interaction. However, with those she interacts with she is alert and oriented times 3.
[2019-03-28 16:00] VITALS: BP 163/98
--- NOTE | 2019-03-28 16:23 | NUR ---
GROUP NOTE: SW encouraged pt to attend group therapy on this present day discussing "discharge planning." Pt refused to attend and was verbally abusive, pt was yelling and was hitting her walker against the floor and she was banging her hand on the wall.
[2019-03-28] MEDS: RIVAROXABAN 10 MG TABLET PO SCH (18:06)
[2019-03-28 20:09] VITALS: BP 109/44
[2019-03-28] MEDS: ATORVASTATIN 10 MG TABLET PO SCH (22:00)
[2019-03-29 08:00] VITALS: BP 128/63
[2019-03-29] MEDS: OLANZAPINE 5 MG/TAB.RAPDIS PO SCH ×2 (08:59→16:40)
[2019-03-29] MEDS: DIVALPROEX SODIUM 250 MG TABLET.DR PO SCH ×2 (09:01→16:37)
[2019-03-29] MEDS: METOPROLOL SUCCINATE 50 MG TAB.SR.24H PO SCH (09:02)
--- NOTE | 2019-03-29 13:38 | NUR ---
Courtney Samuels ([phone]), pts biological engineer and friend, called the SW and stated that the pt called him and stated that she would like him to be her conservator. He stated that he is currently working with a biological engineer at this time to understand and start the process. The SW informed him of the situation regarding the pts home and the problems associated with the pts discharge planning. He stated that he cannot help with the pts water being turned back on and that he would refer the SW to her family members at this time. He stated that he would like a call from the pts MD Dr. Lucas.
--- NOTE | 2019-03-29 13:40 | NUR ---
SW spoke to the pts daughter, Maral ([phone]), and she stated that the pts water can be turned on by Tuesday if she releases her ID to them and fills out a form that can be turned into the water department. She stated that she would pay the bill for the pt and that way her water can be turned back on. HARPAL stated that she may come to the unit and speak to the pt about that option of taking her license to see if this service can be done.
--- NOTE | 2019-03-29 13:41 | NUR ---
Intervention with the pt: SW informed the pt that she can be released on Tuesday if there is water at her house and informed her that the pts daughter can assist with that need. The pt stated that she did not want her daughter involved and that she would get her electrotherapist involved and get discharged even sooner.
--- NOTE | 2019-03-29 13:42 | NUR ---
Intervention with the pt and the MD: Dr. Lucas spoke to the pt about how her travel accommodation inspector/friend, Courtney, stated that she would like him to be her conservator. She stated that was true but stated that she did not want to be in the hospital for as long as this process is to take place. She stated that she wanted to be discharged back to her home and that she wanted it to be done without her familys involvement.
--- NOTE | 2019-03-29 13:44 | NUR ---
Dr. Lucas and the SW spoke to pts liquid natural gas plant operator and friend, Courtney ([phone]), and it was discussed that the pt cannot return to her home under the conditions that it is claimed to be in. Dr. Lucas stated that the conservatorship process can get started while she is in the hospital on a 30 day hold and that if the pts liquid natural gas plant operator/friend, Courtney, does not make a decision regarding if he can start the process by Tuesday then Dr. Lucas will begin the process.
--- NOTE | 2019-03-29 13:46 | NUR ---
Family Intervention: SW met with the pts daughter, Maral ([phone]) and pts son in law, Steven, before they spoke to the pt about helping her with her finances and utilities. SW discussed that if the pt does not agree to use their assistance with her utilities then the MD spoke to the pts magnetic testing technician friend and that conservatorship is being discussed. The family went in to go visit the pt and then the pt stated that she did not want them involved and that she would just handle the situation on her own. The pts family members became agitated and disheartened and stated that they will not be involved in her case anymore.
--- NOTE | 2019-03-29 14:05 | NUR ---
Pt requested that her family members are excluded from her treatment and from visitation. Pt wrote and signed a letter stating that she did not want them to visit her at the facility. She asked the SW not to divulge any information as well.
--- NOTE | 2019-03-29 15:45 | NUR ---
Cathleen Ventura ([phone]), Mallika SW, called the SW and it was discussed that the pt is already involved with [facility]PS and the pts counter caser is Adama ([phone]). She stated that she believes that the pts needs to be conserved due to her refusing all services. SW stated that she would be calling him to provide recent information on the pts case.
[2019-03-29 16:00] VITALS: BP 125/53
--- NOTE | 2019-03-29 16:31 | NUR ---
Group Note 03/29/19: SW approached patient at bedside and invited them to attend today's support group at 2 pm in the activities room regarding mindfulness. Patient refused to participate in group. SW encouraged pt. to participate or sit in. Patient refused. SW respected patient self determination and SW will invite patient to next group session.
[2019-03-29] MEDS: RIVAROXABAN 10 MG TABLET PO SCH (16:39)
[2019-03-29] MEDS: ATORVASTATIN 10 MG TABLET PO SCH (20:13)
--- NOTE | 2019-03-29 20:15 | NUR ---
GPS RN NOTE ATORVASTATIN 10MG WAS GIVEN EARLY D/T PATIENTS REQUEST.
[2019-03-29 20:38] VITALS: BP 127/59
--- NOTE | 2019-03-30 02:27 | NUR ---
PATIENT SOUND ASLEEP, WILL CONTINUE TO MONITOR
[2019-03-30 08:00] VITALS: BP 121/60
[2019-03-30] MEDS: OLANZAPINE 5 MG/TAB.RAPDIS PO SCH ×2 (08:13→16:04)
[2019-03-30] MEDS: DIVALPROEX SODIUM 250 MG TABLET.DR PO SCH ×2 (08:13→16:04)
[2019-03-30] MEDS: METOPROLOL SUCCINATE 50 MG TAB.SR.24H PO SCH (08:13)
--- NOTE | 2019-03-30 08:34 | NUR ---
HARPAL called Adama ([phone]), [facility]PS HARPAL, and left a voicemail stating that the SW would like to speak to him regarding the pts case and providing some updates.
--- NOTE | 2019-03-30 11:08 | NUR ---
HARPAL met with the pts AOT Product Strategy Director, Slava ([phone]), and informed him that the pt is going to go through the conservatorship process with the MD. He stated that he will close the case and follow up with the pt if the conservatorship process does not occur.
--- NOTE | 2019-03-30 12:48 | NUR ---
Individual Intervention with the pt: SW asked the pt if she would like anyone to be notified about her Probable Cause Hearing for her 30 Day Hold. She stated that she would like it if her web marketing specialist/friend, Courtney Samuels ([phone]), would be notified.
--- NOTE | 2019-03-30 12:50 | NUR ---
PC Hearing Notification: Courtney Samuels ([phone]), pts data keyer and friend, called the SW and stated that he is not willing to be the pts conservator at this time. He stated that he felt like he cannot be the one responsible for the pt. SW informed him that the hospital would continue to file and the court can appoint someone from the [employer] office. HARPAL also informed him that the pt will be having a Probable Cause hearing today for her 30 day hold.
--- NOTE | 2019-03-30 15:25 | NUR ---
GROUP NOTE: SW encouraged pt to attend group on this present day to discuss "impaired reality-testing." Pt unable to atend due to contesting her 5270 hold and being present at her PC Hearing.
[2019-03-30 16:00] VITALS: BP 119/68
[2019-03-30] MEDS: RIVAROXABAN 10 MG TABLET PO SCH (16:04)
--- NOTE | 2019-03-30 19:20 | NUR ---
PATIENT INSIDE HER ROOM SITTING UP IN BED, CALM AND QUIET.
[2019-03-30 19:55] VITALS: BP 104/53
[2019-03-30] MEDS: ATORVASTATIN 10 MG TABLET PO SCH (21:07)
--- NOTE | 2019-03-31 07:30 | NUR ---
INITIAL PT IN BED CALM AND QUIET, COMFORTABLE, NO APPARENT DISTRESS NOTED. COOPERATIVE WILL CONTINUE TO MONITOR
[2019-03-31 08:00] VITALS: BP 129/59
[2019-03-31] MEDS: DIVALPROEX SODIUM 250 MG TABLET.DR PO SCH ×2 (08:39→16:45)
[2019-03-31] MEDS: OLANZAPINE 5 MG/TAB.RAPDIS PO SCH ×2 (08:39→16:47)
[2019-03-31] MEDS: METOPROLOL SUCCINATE 50 MG TAB.SR.24H PO SCH (08:40)
[2019-03-31 16:00] VITALS: BP 130/64
[2019-03-31] MEDS: RIVAROXABAN 10 MG TABLET PO SCH (16:46)
--- NOTE | 2019-03-31 18:07 | NUR ---
CLOSING PT COOPERATIVE AND CALM ALL DAY TAKING ALL MEDICATIONS AFTER COMPLAINS ABOUT WHY DOES SHE HAVE TO TAKE MEDICATIONS PT EXPLAINED PLAN OF CARE. PT KEPT SAFE WEST REPORT TO PM SHIFT RN FOR CONTINUITY OF CARE
--- NOTE | 2019-03-31 19:03 | NUR ---
RECEIVED PATIENT ASLEEP, SHOWS NO S/S OF ANY DISTRESS, COMFORTABLE LYING ON HER RIGHT SIDE. SAFETY PRECAUTION OBSERVED, BED ON LOWEST POSITION. ENVIRONMENTAL SAFETY CHECKED DONE. BED ALARM ON. WILL CONTINUE TO MONITOR TO MAINTAIN SAFETY.
[2019-03-31] MEDS: ATORVASTATIN 10 MG TABLET PO SCH (22:00)
--- NOTE | 2019-03-31 22:13 | NUR ---
OFFERED ATORVASTATIN 10 MG PO X3, REFUSED.
[2019-04-01 08:00] VITALS: BP 134/62
[2019-04-01] MEDS: METOPROLOL SUCCINATE 50 MG TAB.SR.24H PO SCH (08:37)
[2019-04-01] MEDS: DIVALPROEX SODIUM 250 MG TABLET.DR PO SCH ×2 (08:37→16:30)
[2019-04-01] MEDS: OLANZAPINE 5 MG/TAB.RAPDIS PO SCH ×2 (08:37→16:29)
[2019-04-01] MEDS: RIVAROXABAN 10 MG TABLET PO SCH (16:30)
--- NOTE | 2019-04-01 16:35 | NUR ---
RN NOTE: PATIENT DROPPED 1 ZYPREXA. ANOTHER MED PULLED
[2019-04-01 19:51] VITALS: BP 124/65
[2019-04-01] MEDS: ATORVASTATIN 10 MG TABLET PO SCH (21:39)
[2019-04-02 08:00] VITALS: BP 129/61
[2019-04-02 08:34] VITALS: BP 129/61
[2019-04-02] MEDS: OLANZAPINE 5 MG/TAB.RAPDIS PO SCH (08:34)
[2019-04-02] MEDS: DIVALPROEX SODIUM 250 MG TABLET.DR PO SCH (08:34)
[2019-04-02] MEDS: METOPROLOL SUCCINATE 50 MG TAB.SR.24H PO SCH (08:34)
--- NOTE | 2019-04-02 09:05 | NUR ---
HARPAL and the pts MD, Dr. Lucas, discussed the pts case with the SW's managing supervisor, Saira Le. It was discussed that the pt is no longer considered to be gravely disabled because the pt was able to show evidence pertaining to her attempting to correct and repair the situations in her home that make it considered unsafe. Pt and the MD had a long discussion about how she would be able to proceed to rectify her living situation with the pt detailing out her plan to the MD. MD decided that the pt can be discharged from the hospital today as she would need to be released to complete these tasks as no one else is willing to assist her.
--- NOTE | 2019-04-02 11:05 | NUR ---
HARPAL called the pts AOT Fighting Vehicle Systems Maintainer, Slava ([phone]), and informed him that the pt is no longer going to go through the process of being conserved because the MD decided that the pt is able to take care of herself. Slava stated that he will fiber picker the case once again and visit her in her home to continue with her services. Addendum: 04/02/19 at 1111 by SARITHA ROWAN HARPAL stated that the pt is going to be discharged today at 12pm back to her home.
--- NOTE | 2019-04-02 12:24 | NUR ---
INSPECTOR FINISHING NOTE: PATIENT IS A 78 YEAR OLD FEMALE DISCHARGED TO HOME LOCATED AT [address] [place] [address] DR [place] [address] . PATIENT IS IN STABLE CONDITION. VSS. NO ACUTE DISTRESS NOTED. NO COMPLAINTS. COMPLIANT WITH MEDICATION MANAGEMENT. COOPERATIVE WITH PLAN OF CARE. PSYCHIATRIC TREATMENT PLANS MET. MEDICAL TREATMENT PLANS DEFERRED FOR CONTINUAL MONITORING. DENIES SI/HI VAH AT THE TIME OF DISCHARGE. PATIENT REFUSED FULL BODY SKIN CHECK AND ASSESSMENT. EDUCATED PATIENT ABOUT AFTERCARE WITH COPY PROVIDED. RETURNED PERSONAL BELONGINGS TO PATIENT. MEDICATIONS RECONCILED WITH DR FERRELL AND DR GOTTLIEB ALONG WITH PSYCHIATRIC DISCHARGE ORDERS. DISCHARGE PAPERWORK SIGNED. FOR FOLLOW UP WITH PSYCHIATRIST DR NORIEGA [address] [place] [id number] AND MANAGER STYLIST [address] ROY [address] [facility] [address] [facility] [id number] WITHIN 1 WEEK. PATIENT LEFT [facility] AT 1220 VIA TAXI.
--- NOTE | 2019-04-02 13:12 | NUR ---
SW received a call from the pts daughter, Maral ([phone]), who stated that she was upset that the SW cannot divulge any information per the pts denial of rights request and per HIPAA. Pts daughter stated that she is going to take the case up to administration because she does not agree with the pt and the hospital respecting the pts rights. SW apologized to the pts daughter and stated that the pt does legally have rights that must be respected. HARPAL informed her shipping room supervisor, Saira Le, as well as the pts MD, Dr. Lucas. Addendum: 04/02/19 at 1409 by SARITHA ROWAN This call took place at 12pm.
--- NOTE | 2019-04-02 13:25 | NUR ---
Per [facility] regulations on gravely disabled patients and after consulting with the SW's clothing supervisor, Saira Le, HARPAL called pts daughter, Maral ([phone]), and informed her that the pt was discharged around 12:20pm back to her home. HARPAL explained the situation regarding that decision to discharge and the pts daughter began to threaten the SW stating, "Are you guys stupid?" and "The neighbors are very strong people and have resources. They mentioned the word malpractice. They are going to take action so just watch what happens." HARPAL stated that she understands her feelings but expressed that the MD felt comfortable discharging the pt due to her level of orientation and her ability to show evidence of the state of her affairs and state step by step what her plan is.
--- NOTE | 2019-04-02 14:41 | NUR ---
Discharge Note: Pt was discharged at 12:20pm back to her home located at [address] [place] [address]; ([phone]). Pt was transported via taxi at 12pm. Pts daughter, Maral ([phone]), was made aware of the discharge. Upon discharge, the pt appeared to be in a euthymic mood and presented with a calm and content affect. Pt denied both suicidal and homicidal ideation as well as auditory and visual hallucinations. Pt was deemed as appropriate for discharge with the evidence that she provided to the MD regarding her living affairs that have been placed in the chart. Pt will continue to be under the care of her psychiatrist, Dr. Hubbard, located at [address], [place] [address]; ; fax of records was sent to: [phone]. Pts MD is out of town and will return on 04/09/19. SW left a voicemail to contact the pt to set up an appointment. Pt will also be under the care of her partner marketing intern, Dr. Horn, located at [address] [facility] [address], [place] [address]; .
--- NOTE | 2019-04-06 10:29 | NUR ---
Late Social Work Discharge Note Spoke with daughter, Maral [phone] who called this social worker palliative care and requested a callback earlier this week. Maral was upset that Dr Lucas did not pursue conservatorship with her mother. Dr Lucas is aware that daughter is unhappy with his decision re not pursuing conservatorship. This television writer spoke to the daughter at length re her concerns and daughter was appreciative of the time spent.Maral also said that she felt that assigned social worker palliative care could have called her earlier the day of discharge. Selena yanwledged this and this television writer apologized for the delayed notification of discharge from the social worker palliative care.
== END 2019-04-02 12:20 | disposition home or self-care (01) | DRG 885 ==
LOC: GPS 05:37
PROVIDERS: ADMIT Psychiatry & Neurology Psychiatry; ATTEND Family Medicine
DX: F31.64 Bipolar disorder, current episode mixed, severe, with psychotic features (principal); F23 Brief psychotic disorder; D68.59 Other primary thrombophilia; I48.91 Unspecified atrial fibrillation; I10 Essential (primary) hypertension; Z88.0 Allergy status to penicillin; Z91.19 Patient's noncompliance with other medical treatment and regimen; E78.5 Hyperlipidemia, unspecified; R04.0 Epistaxis; T45.515A Adverse effect of anticoagulants, initial encounter; Y92.89 Other specified places as the place of occurrence of the external cause
CPT/HCPCS: 36415; 85025-TC; 87081-TC; 93970-TC; 97116-TC; 97530-TC; J3490